=== PATIENT | female | born 1950 | race Caucasian/White ===

== ENCOUNTER 2019-12-05 12:23 | Observation (INO) ==
[2019-12-05] MEDS ORDERED: ISOVUE-370 200 ML INFUS..BTL ONE (12:30)
[2019-12-05] MEDS ORDERED: Nitroglycerin 1,000 MCG/10 ML VIAL IV ONE (12:30)
[2019-12-05] MEDS ORDERED: 0.9 % Sodium Chloride 2,000 ML ONE (12:30)
[2019-12-05] MEDS ORDERED: *HR* Heparin 10,000 UNIT/10 ML VIAL ONE ×2 (12:30→15:39)
[2019-12-05] MEDS ORDERED: Heparin 1,000 UNITS/500 mL 500 ML ONE (12:30)
[2019-12-05 13:01] LABS: Basophils % 0.6 %; Eosinophils % 0.6 %; Hematocrit 40.2 % (35.3-44.9); Hemoglobin 12.9 g/dL (11.5-15.4); Immature Granulocytes % 0.3 % (0-4); Lymphocytes # 1.5 K/mcL (0.6-4.6); Lymphocytes % 24.1 %; Mean Corpuscular HGB Conc 32.1 g/dL (31.6-35.5); Mean Corpuscular Hemoglobin 31.2 pg (28.0-33.3); Mean Corpuscular Volume 97.3 fL (83.0-100.0); Mean Platelet Volume 9.6 fL (9.4-12.4); Monocytes # 0.7 K/mcL (0.0-1.3); Monocytes % 10.8 %; Neutrophils # 3.9 K/mcL (1.6-8.9); Platelet Count 253 K/mcL (140-400); Red Blood Count 4.13 M/mcL (3.82-4.97); Red Cell Distribution Width 13.1 % (11.5-14.5); Segmented Neutrophils % 63.6 %; White Blood Count 6.2 K/mcL (4.3-11.1)
[2019-12-05 13:15] LABS: Prothrombin Time 11.4 Seconds (9.4-12.1)
[2019-12-05 13:17] LABS: Activated Partial Thrombo Time 29.4 Seconds (26.0-36.0)
[2019-12-05 13:28] LABS: BUN/Creatinine Ratio 16 (6-26); Blood Urea Nitrogen 18 mg/dL (8-23); Calcium 9.8 mg/dL (8.6-10.3); Carbon Dioxide 25 mEq/L (23-29); Chloride 102 mEq/L (98-107); Glucose 101 mg/dL (70-105); Osmolality,Calculated 288 (280-300); Potassium 3.7 mEq/L (3.5-5.1); Sodium 138 mEq/L (136-145); eGFR For African Americans 60 (> 60); eGFR For Non-African Americans 49 (> 60)
[2019-12-05 13:29] LABS: Troponin I < 0.03 ng/mL (< 0.04)
[2019-12-05] MEDS ORDERED: 0.9 % Sodium Chloride 1,000 ML IVC SCH (13:45)
[2019-12-05] MEDS ORDERED: Aspirin 81 MG TAB.CHEW PO STA (13:55)
[2019-12-05] MEDS ORDERED: Verapamil 5 MG/2 ML VIAL ONE (14:36)
[2019-12-05] MEDS ORDERED: *HR* FentaNYL (PF) 100 MCG/2 ML VIAL ONE (14:49)
[2019-12-05] MEDS ORDERED: *HR* Midazolam HCl 2 MG/2 ML VIAL ONE (14:49)
[2019-12-05] MEDS ORDERED: Adenosine 90 MG/30 ML MLS IV ONE (15:49)
[2019-12-05] MEDS ORDERED: Acetaminophen 325 MG TABLET PO PRN (15:58)
[2019-12-05] MEDS ORDERED: Ondansetron 4 MG/2 ML VIAL IVP PRN (15:58)
[2019-12-05] MEDS ORDERED: Nitroglycerin 0.4 MG TAB.SUBL SL PRN (17:33)
[2019-12-05] MEDS: *HR* Heparin 5,000 UNIT/ML VIAL SQ SCH (19:43)
[2019-12-05] MEDS: *HR* LORazepam 1 MG TABLET PO SCH (20:44)
[2019-12-05] MEDS ORDERED: Perflutren Lipid Microsphere 1.3 ML in 0.9 % Sodium Chloride 8.7 ML IVP ONE (21:13)
[2019-12-06 03:58] LABS: BUN/Creatinine Ratio 18 (6-26); Blood Urea Nitrogen 18 mg/dL (8-23); Calcium 8.8 mg/dL (8.6-10.3); Carbon Dioxide 23 mEq/L (23-29); Chloride 107 mEq/L (98-107); Chol/HDL Ratio 2.9 (0-4.9); Glucose 89 mg/dL (70-105); Osmolality,Calculated 289 (280-300); Potassium 3.8 mEq/L (3.5-5.1); Sodium 139 mEq/L (136-145); eGFR For African Americans > 60 (> 60); eGFR For Non-African Americans 54 (> 60)
[2019-12-06 04:26] LABS: Basophils % 0.6 %; Eosinophils # 0.1 K/mcL (0.0-0.6); Eosinophils % 1.1 %; Hematocrit 35.6 % (35.3-44.9); Hemoglobin 11.4 g/dL (11.5-15.4); Immature Granulocytes % 0.3 % (0-4); Lymphocytes # 2.3 K/mcL (0.6-4.6); Lymphocytes % 34.8 %; Mean Corpuscular Hemoglobin 30.2 pg (28.0-33.3); Mean Corpuscular Volume 94.2 fL (83.0-100.0); Mean Platelet Volume 10.1 fL (9.4-12.4); Monocytes # 0.5 K/mcL (0.0-1.3); Monocytes % 8.3 %; Neutrophils # 3.6 K/mcL (1.6-8.9); Platelet Count 230 K/mcL (140-400); Red Blood Count 3.78 M/mcL (3.82-4.97); Red Cell Distribution Width 13.3 % (11.5-14.5); Segmented Neutrophils % 54.9 %; White Blood Count 6.5 K/mcL (4.3-11.1)
[2019-12-06] MEDS: *HR* Heparin 5,000 UNIT/ML VIAL SQ SCH (05:34)
[2019-12-06] MEDS: *HR* LORazepam 1 MG TABLET PO SCH (07:53)
[2019-12-06] MEDS ORDERED: hydroCHLOROthiazide 25 MG TABLET PO SCH (09:00)
[2019-12-06] MEDS ORDERED: NON-FORMULARY MEDICATION 1 EACH EACH (Pravastatin Sodium [Pravachol] 20 MG) PO SCH (09:00)
[2019-12-06] MEDS ORDERED: Aspirin Enteric Coated 81 MG Tablet PO SCH (09:00)
[2019-12-06] MEDS ORDERED: Isovue-370 500 ML BOTTLE IVP ONE ×2 (09:01→11:53)
[2019-12-06 11:54] VITALS: BP 96/63
== END 2019-12-06 15:50 | disposition home or self-care (01) ==
LOC: EMEROOARM 12:23 → 2NNU 12:23
PROVIDERS: ADMIT Internal Medicine; ATTEND Internal Medicine